=== PATIENT | male | born 2000 | race Caucasian/White ===

== ENCOUNTER → 2025-03-06 06:44 | Outpatient (CLI) | payer BC, SELFPAY ==
--- NOTE | 2025-03-06 06:45 | DI.US.S_ITS ---
PROCEDURE: US ABDOMEN LIMITED INDICATIONS: rlq abdominal mass TECHNIQUE: Real-time focused scanning was performed of the abdomen, with image documentation. COMPARISON: [facility], CT, CT ABDOMEN PELVIS W CON, 01/05/2025, 12:08. FINDINGS/IMPRESSION: No sonographic abnormalities or suspicious mass in the superficial or deep right lower quadrant area of interest. Dictated by: Jojo Richmond M.D. on 03/06/2025 at 13:29 Approved by: Jojo Richmond M.D. on 03/06/2025 at 13:30
== END ==
LOC: US 06:45
PROVIDERS: PCP Family Medicine; Referring Provider Family Medicine; Visit Provider Family Medicine
DX: R19.03 Right lower quadrant abdominal swelling, mass and lump (principal)
CPT/HCPCS: 76705

== ENCOUNTER 2025-05-11 07:44 | Day surgery (SDC) | payer BC, SELFPAY ==
--- NOTE | 2025-05-11 06:25 | PM.PREOP ---
Pre-operative Note Interval Note History & Physical reviewed/Exam performed by Physician: Yes Changes to H&P: No ASA Class (for procedural sedation): II
[2025-05-11 08:07] VITALS: BP 125/86; PULSE 84; RESP 16; TEMP 36.2; O2SAT 97
[2025-05-11] MEDS: LACTATED RINGERS 1,000 ML 42 ML IV (08:21)
--- NOTE | 2025-05-11 09:20 | P.OP.COLON_ITS ---
Operative Date/Time/Diagnoses Date of procedure: 05/11/25 Time of procedure: 10:00 Pre-op diagnosis: Hemorrhoids, rectal bleeding Post-op diagnosis: same Procedure & Clinicians Study performed: Colonoscopy with internal hemorrhoid banding Same procedure(s) as scheduled: Yes Indications: 25yo M, hemorrhoids, rectal bleeding Surgeon: Rex Hernandez Anesthesia Type: MAC +/- Procedure Notes SCOAP/Timeout: Performed Procedure in detail: Colonoscopy Patient placed in left lateral recumbent position. Time out was performed. Procedural sedation was administered by anesthesia. Examination began with a thorough inspection of the perianal area. There was no evidence of fissures, fistulae, external hemorrhoids or cutaneous malignancy. The colonoscope was then placed into the rectum and the lumen was insufflated with carbon dioxide. The scope was carefully advanced forward. Ultimately the cecum was intubated and confirmed by identification of the ileocecal valve, the appendiceal orifice and the confluence of the taenia. The scope was then slowly withdrawn examining the colon thoroughly in all directions. In the rectum, retroflexion of the scope was performed for inspection of the distal rectum and anal canal. ?Significant colonoscopy findings: ?1. Quality of the preparation-good, [place] 2-3, improved with i rrigation/suction ?2. No polyps, mass, stricture 3. Internal hemorrhoid at 7 o'clock position successfully banded Scope withdrawal time: 10 minutes Findings: internal hemorrhoids Specimen(s): none sent Estimated Blood Loss: 5 Complications: none Impression: Normal screening colonoscopy Successful internal hemorrhoid banding Post-procedure Plan for aftercare: PACU then home Follow up: as needed Disposition: PACU
[2025-05-11 09:45] VITALS: BP 101/56; PULSE 84; RESP 16; TEMP 36.4; O2SAT 96
[2025-05-11 09:50] VITALS: BP 109/60; PULSE 86; RESP 20; O2SAT 95
[2025-05-11 09:55] VITALS: BP 114/64; PULSE 79; RESP 16; TEMP 36.2; O2SAT 96
[2025-05-11 10:05] VITALS: BP 126/74; PULSE 85; RESP 14; TEMP 36.3; O2SAT 99
== END 2025-05-11 10:27 | disposition home or self-care (01) ==
PROVIDERS: PCP Family Medicine; Referring Provider Family Medicine; Visit Provider Surgery
PROC: 0DJD8ZZ Inspection of Lower Intestinal Tract, Via Natural or Artificial Opening Endoscopic (ICD-10-PCS; CPT 45378; principal; 2025-05-11 09:00)
DX: K62.5 Hemorrhage of anus and rectum (principal); K64.8 Other hemorrhoids
CPT/HCPCS: 45398; J2704; J7120